=== PATIENT | female | born 1960 | race Hispanic/Latino ===

== ENCOUNTER 2024-02-17 15:15 | Emergency (ER) | payer BC, MEDICARE ==
[~2024-02-17] VITALS: Ht 157.5 cm; Wt 72.6 kg
[~2024-02-17 15:15] MED LIST: AZITHROMYCIN250 MG PO; PANTOPRAZOLE SO40 MG; TYLENOL WITH C1 EACH PO; ZOFRAN4 MG SL
[2024-02-17] MEDS ORDERED: IBUPROFEN 600 MG TAB ONE (15:45)
[2024-02-17 15:51] LABS: BASOPHILS # (AUTO) 0.1 (0.0-0.1); BASOPHILS % 0.5 % (0.0-1.0); EOSINOPHILS # (AUTO) 0.1 (0.0-0.4); EOSINOPHILS % 0.9 % (0.0-6.0); HEMATOCRIT 39.7 % (34.2-44.1); HEMOGLOBIN 13.5 g/dL (12.0-16.0); LYMPHOCYTES # (AUTO) 0.6 (1.0-3.2); LYMPHOCYTES % 5.6 % (18.0-39.1); MEAN CORPUSCULAR HEMOGLOBIN 30.4 pg (28-32); MEAN CORPUSCULAR VOLUME 89.4 fL (81-99); MONOCYTES # (AUTO) 0.4 (0.2-0.8); MONOCYTES % 4.1 % (4.4-11.3); NEUTROPHILS # (AUTO) 9.1 (2.1-6.9); NEUTROPHILS % 88.6 % (38.7-80.0); PLATELET COUNT 253 x10e3/uL (140-360); RED BLOOD COUNT 4.44 x10e6/uL (3.6-5.1); WHITE BLOOD COUNT 10.23 x10e3/uL (4.8-10.8)
[2024-02-17] MEDS: IBUPROFEN 600 MG TAB PO STA (15:52)
[2024-02-17] MEDS: SODIUM CHLORIDE 0.9% 1000ML 1,000 ML IV STA (16:07)
[2024-02-17] MEDS: ONDANSETRON HCL INJ 2MG/ML 2ML 2 MG/ML VIAL IV STA (16:07)
[2024-02-17] MEDS: ACETAMINOPHEN 1000 MG/100 ML IV STA (16:07)
[2024-02-17 16:23] LABS: ALBUMIN 4.1 g/dL (3.5-5.0); ANION GAP 16.9 mmol/L (8-16); BILIRUBIN,TOTAL 0.5 mg/dL (0.2-1.2); CALCIUM 9.8 mg/dL (8.4-10.2); CREATININE, SERUM 0.82 mg/dL (0.57-1.11); POTASSIUM 3.9 mmol/L (3.5-5.1); TOTAL PROTEIN 8.1 g/dL (6.5-8.1)
[2024-02-17 16:28] LABS: INFLUENZAE A&B ANTIGEN (RAPID) NEGATIVE (NEGATIVE)
[2024-02-17 16:29] LABS: RESPIRATORY SYNC. VIRUS POSITIVE (NEGATIVE)
[2024-02-17 17:30] VITALS: BP 118/60; PULSE 86; RESP 20; TEMP 100.9; O2SAT 96
== END 2024-02-17 17:30 | disposition home or self-care (01) ==
LOC: ER 15:25
DX: U07.1 COVID-19 (principal)
CPT/HCPCS: 0223U; 36415; 71045; 80053; 83518; 85025; 87070; 87400; 87420; 99284; J0131; J2405; J7030